=== PATIENT | female | born 1965 | race Caucasian/White ===

== ENCOUNTER → 2017-02-13 | Outpatient (CLI) | payer OTHER ==
[~2017-02-13] MED LIST: PRM625 PO; ZNTT/150
== END | disposition home or self-care (01) ==
LOC: C.PAPS 15:17
PROVIDERS: ATTEND Obstetrics & Gynecology
DX: Z12.4 Encounter for screening for malignant neoplasm of cervix (principal)

== ENCOUNTER → 2017-02-14 | Outpatient (CLI) | payer OTHER ==
[2017-02-14 16:22] LABS: URINE APPEARANCE CLEAR (CLEAR); URINE BILIRUBIN NEG (NEG); URINE COLOR YELLOW; URINE NITRITE NEG (NEG); URINE SPECIFIC GRAVITY 1.013 (1.000-1.030); UROBILINOGEN NEG (NEG)
[2017-02-14 16:25] LABS: MANUAL MICROSCOPIC REQUIRED? NO; REVIEW REQ? NO
== END | disposition home or self-care (01) ==
LOC: C.LABSPEC 14:56
PROVIDERS: ATTEND Obstetrics & Gynecology
DX: R31.9 Hematuria, unspecified (principal)

== ENCOUNTER → 2017-03-16 | Outpatient (CLI) | payer OTHER ==
--- NOTE | 2017-03-17 14:12 | MAMMOGRAPHY REPORT ---
BILATERAL DIGITAL SCREENING MAMMOGRAM TOMOSYNTHESIS WITH CAD: 03/16/2017 CLINICAL HISTORY: Routine screening. Patient has no complaints. TECHNIQUE: Breast tomosynthesis in addition to standard 2D mammography was performed. Current study was also evaluated with a Computer Aided Detection (CAD) system. COMPARISON: Comparison is made to exams dated: 12/02/2015 mammogram, 11/03/2014 mammogram, 11/01/2013 ma mmogram, 10/31/2012 mammogram, 08/16/2011 mammogram, and 07/30/2010 mammogram - [facility] nter. BREAST COMPOSITION: The tissue of both breasts is heterogeneously dense, which may obscure small mas ses. FINDINGS: No suspicious masses, calcifications, or areas of architectural distortion are noted in ei ther breast. There has been no significant interval change compared to prior exams. A few scattered bilateral benign-appearing calcifications are again noted. IMPRESSION: ACR BI-RADS CATEGORY 2: BENIGN There is no mammographic evidence of malignancy. A 1 year screening mammogram is recommended. The pa tient will receive written notification of the results. Approximately 10% of breast cancers are not detected with mammography. A negative mammographic report should not delay biopsy if a clinically suggestive mass is present. Concepción Hooper M.D. /:03/16/2017 14:22:12 [employer]: Holly OSORIO)(M), [facility] letter sent: Normal 1/2 BI-RADS Code: ACR BI-RADS Category 2: Benign
== END | disposition home or self-care (01) ==
LOC: C.MAMM 13:22
PROVIDERS: ATTEND Obstetrics & Gynecology
DX: Z12.31 Encounter for screening mammogram for malignant neoplasm of breast (principal)

== ENCOUNTER 2017-04-05 10:45 | Inpatient (IN) | payer OTHER ==
[2017-04-05] VITALS (7 sets, daily range): BP systolic 102–112; BP diastolic 64–74; PULSE 60–95; TEMP 36.4–36.5; O2SAT 95–97; Ht 160 cm; Wt 59.2 kg
[~2017-04-05] VITALS: Ht 160 cm; Wt 59.2 kg
[~2017-04-05 10:45] MED LIST changes: -ZNTT/150; +ZNTT/150 PO
--- NOTE | 2017-04-05 11:37 | DIAGNOSTIC IMAGING REPORT ---
CHEST ONE VIEW PORTABLE CLINICAL HISTORY: Fever. Sepsis. Atrial fibrillation. COMPARISON STUDY: Chest radiograph November or 2013. FINDINGS: Lung volumes are normal. No pneumothorax or pleural effusion is present. Lungs are clear. Cardiomediastinal silhouette is normal. Pulmonary vascularity is normal. IMPRESSION: No acute cardiopulmonary findings. Electronically signed by: Naldo Gallagher M.D. 04/05/2017 11:35 AM Dictated Date/Time: 04/05/2017 11:35 AM
[2017-04-05 11:48] LABS: BASO % 0.2 %; BASO ABS # 0.01 K/uL (0-0.2); EOS % 0.7 %; HEMATOCRIT 43.3 % (37-47); IG% 0.2 %; LYMPH % 28.7 %; LYMPH ABS # 1.68 K/uL (1.2-3.4); MEAN CELL VOLUME 63.2 fL (80-100); MEAN CORPUSCULAR HEMOGLOBIN 20.1 pg (25-34); MEAN CORPUSCULAR HGB CONC 31.9 g/dl (32-36); MONO % 4.9 %; NEUT % 65.3 %; PLATELET COUNT 218 K/uL (130-400); RED BLOOD COUNT 6.85 M/uL (4.2-5.4); WHITE BLOOD COUNT 5.86 K/uL (4.8-10.8)
[2017-04-05 11:56] LABS: INR 1.1 (0.9-1.1); PARTIAL THROMBOPLASTIN RATIO 0.9; PROTHROMBIN TIME (PATIENT) 11.4 SECONDS (9.0-12.0)
[2017-04-05] MEDS ORDERED: ESTR2TAB PO (12:02)
[2017-04-05 12:05] LABS: ALT/SGPT 18 U/L (12-78); AST/SGOT 11 U/L (15-37); BLOOD UREA NITROGEN 23 mg/dl (7-18); BUN/CREATININE RATIO 31.8 (10-20); CALCIUM 9.3 mg/dl (8.5-10.1); CARBON DIOXIDE 26 mmol/L (21-32); CHLORIDE 107 mmol/L (98-107); CREATININE 0.73 mg/dl (0.60-1.20); GLUCOSE 95 mg/dl (70-99); SODIUM 140 mmol/L (136-145)
[2017-04-05 12:14] LABS: COMPLETE YES; MICROCYTOSIS PRESENT; SPHEROCYTE 1+; TARGET CELLS 1+; TEAR DROP CELLS 1+
[2017-04-05 12:16] LABS: ALKALINE PHOSPHATASE 61 U/L (45-117); CKMB/CK RATIO 2.1 (0-3.0)
[2017-04-05] MEDS ORDERED: DILTIAZEM BOLUS / DRIP IV STA (13:16)
[2017-04-05] MEDS ORDERED: DILTIAZEM HCL INJ 125 MG in DEXTROSE 5% 100ML IV PRN ×2 (13:45→15:45)
[2017-04-05] MEDS ORDERED: DILTIAZEM HCL 5 MG/ML 5 ML VIAL IV SCH (13:45)
[2017-04-05] MEDS ORDERED: ONDANSETRON INJ 2 MG/ML 2 ML VIAL IV PRN (14:15)
[2017-04-05] MEDS ORDERED: ACETAMINOPHEN 325 MG TAB PO PRN (14:15)
[2017-04-05] MEDS ORDERED: DILTIAZEM BOLUS / DRIP IV SCH (14:23)
[2017-04-05] MEDS ORDERED: HEPARIN 25000 UNIT/500 ML D5W ONE (14:38)
[2017-04-05] MEDS ORDERED: HEPARIN SOD 5000 UNIT/0.5 ML CARP ONE (14:38)
--- NOTE | 2017-04-05 14:57 | EMERGENCY ROOM VISIT NOTE ---
History Report prepared by Bobby: Beverly Nicole Under the Supervision of: Dr. Bhargav Altman D.O. First contact with patient: 11:06 Chief Complaint: IRREGULAR HEARTBEAT Stated Complaint: CURRENTLY IN AFIB Nursing Triage Summary: patient was at a sleep study since monday and was told by the research facility that she was mostly in afib throughout the night. they did an EKG when she woke up and she was still in afib. patient states for years she has had occasional palpitation and had a heart monitor that did not show anything. patient states he has had occasional SOB and palpitations for years and states she has not felt any different. History of Present Illness The patient is a 51 year old female who presents to the Emergency Room with complaints of a persistent irregular heartbeat that began last evening. The patient states that she was having a sleep study done in the research facility last night and states that she was found to be in atrial fibrillation throughout the whole evening. She states that this was done at [facility] lab. The patient states that the doctor came in during the morning and did an EKG on the patient and notes that she was still in atrial fibrillation. She states that she was instructed to come to the emergency department for further evaluation and treatment. The patient states that her mother has a history of atrial fibrillation, but denies any personal history of atrial fibrillation. She states that the only medications she takes are hormone replacements. The patient states that she feels short of breath and that her heart is fluttering. She states that she has had these feelings intermittently for the past several months. The patient additionally reports dizziness. She denies taking aspirin daily. Source of History: patient Onset: last evening Position: other (global) Quality: other (irregular heartbeat) Timing: other (persistent) Associated Symptoms: + SOB Note: Associated Symptoms: dizziness, heart fluttering Review of Systems See HPI for pertinent positives & negatives. A total of 10 systems reviewed and were otherwise negative. Past Medical & Surgical Medical Problems: (1) Gastroparesis (2) GERD (gastroesophageal reflux disease) (3) Palpitations Surgical Problems: (1) H/O: hysterectomy (2) History of hysterectomy (3) History of tonsillectomy (4) Status post laparotomy Family History Atrial fibrillation Cancer Hypertension Kidney disease Kidney stones Social History Smoking Status: Never Smoker Smokeless Tobacco Use: No Alcohol Use: none Marital Status: single Housing Status: lives with family Occupation Status: unemployed Current/Historical Medications Scheduled Estradiol (Estradiol), 1 TAB PO DAILY Ranitidine (Zantac), 1 TAB PO BID Allergies Coded Allergies: Codeine (Verified Allergy, Unknown, 04/05/17) Physical Exam Vital Signs Date Time Temp Pulse Resp B/P (MAP) Pulse Ox O2 Delivery O2 Flow Rate FiO2 04/05/17 14:51 98 20 109/68 98 04/05/17 14:50 90 20 98/71 96 04/05/17 14:11 78 20 104/70 99 Room Air 04/05/17 14:07 80 20 111/77 98 Room Air 04/05/17 14:01 72 18 93/71 98 Room Air 04/05/17 13:57 80 22 100/76 97 Room Air 04/05/17 13:52 82 20 89/65 97 Room Air 04/05/17 13:38 146 22 117/84 96 04/05/17 13:18 126 04/05/17 13:01 126 18 139/88 97 Room Air 04/05/17 12:00 94 20 119/87 96 Room Air 04/05/17 11:43 116 20 106/87 96 Room Air 04/05/17 11:15 Room Air 04/05/17 11:13 102 04/05/17 10:58 99 Room Air 04/05/17 10:53 36.8 98 18 104/68 100 Room Air Physical Exam CONSTITUTIONAL/VITAL SIGNS: Reviewed / noted above. GENERAL: Non-toxic in appearance. INTEGUMENTARY: Warm, dry, and Dooms. HEAD: Normocephalic. EYES: without scleral icterus or trauma. ENT/OROPHARYNX: clear and moist. LYMPHADENOPATHY/NECK: Is supple without lymphadenopathy or meningismus. RESPIRATORY: Lungs clear and equal. CARDIOVASCULAR: Heart has an irregular rate and irregular rhythm. GI/ABDOMEN: Soft and nontender. No organomegaly or pulsatile mass. No rebound or guarding. Normal bowel sounds. EXTREMITIES: Warm and well perfused. BACK: No CVA tenderness. NEUROLOGICAL: Intact without focal deficits. PSYCHIATRIC: normal affect. MUSCULOSKELETAL: Normally developed with good muscle tone. Medical Decision & Procedures ER Provider Diagnostic Interpretation: X ray results and stated below per my interpretation and radiology interpretation. CHEST ONE VIEW PORTABLE CLINICAL HISTORY: Fever. Sepsis. Atrial fibrillation. COMPARISON STUDY: Chest radiograph November or 2013. FINDINGS: Lung volumes are normal. No pneumothorax or pleural effusion is present. Lungs are clear. Cardiomediastinal silhouette is normal. Pulmonary vascularity is normal. IMPRESSION: No acute cardiopulmonary findings. Electronically signed by: Naldo Gallagher M.D. 04/05/2017 11:35 AM Dictated Date/Time: 04/05/2017 11:35 AM Laboratory Results 04/05/17 11:35 Red Blood Count 6.85, Mean Corpuscular Volume 63.2, Mean Corpuscular Hemoglobin 20.1, Mean Corpuscular Hemoglobin Concent 31.9, Neutrophils (%) (Auto) 65.3, Lymphocytes (%) (Auto) 28.7, Monocytes (%) (Auto) 4.9, Eosinophils (%) (Auto) 0.7, Basophils (%) (Auto) 0.2, Neutrophils # (Auto) 3.83, Lymphocytes # (Auto) 1.68, Monocytes # (Auto) 0.29, Eosinophils # (Auto) 0.04, Basophils # (Auto) 0.01 04/05/17 11:35 Test 04/05/17 11:35 White Blood Count 5.86 K/uL (4.8-10.8) Red Blood Count 6.85 M/uL (4.2-5.4) Hemoglobin 13.8 g/dL (12.0-16.0) Hematocrit 43.3 % (37-47) Mean Corpuscular Volume 63.2 fL (80-100) Mean Corpuscular Hemoglobin 20.1 pg (25-34) Mean Corpuscular Hemoglobin Concent 31.9 g/dl (32-36) Platelet Count 218 K/uL (130-400) Neutrophils (%) (Auto) 65.3 % Lymphocytes (%) (Auto) 28.7 % Monocytes (%) (Auto) 4.9 % Eosinophils (%) (Auto) 0.7 % Basophils (%) (Auto) 0.2 % Neutrophils # (Auto) 3.83 K/uL (1.4-6.5) Lymphocytes # (Auto) 1.68 K/uL (1.2-3.4) Monocytes # (Auto) 0.29 K/uL (0.11-0.59) Eosinophils # (Auto) 0.04 K/uL (0-0.5) Basophils # (Auto) 0.01 K/uL (0-0.2) RDW Standard Deviation 35.4 fL (36.4-46.3) RDW Coefficient of Variation 16.0 % (11.5-14.5) Immature Granulocyte % (Auto) 0.2 % Immature Granulocyte # (Auto) 0.01 K/uL (0.00-0.02) Microcytosis PRESENT Spherocytes 1+ Target Cells 1+ Tear Drop Cells 1+ Prothrombin Time 11.4 SECONDS (9.0-12.0) Prothromb Time International Ratio 1.1 (0.9-1.1) Activated Partial Thromboplast Time 23.1 SECONDS (21.0-31.0) Partial Thromboplastin Ratio 0.9 Anion Gap 7.0 mmol/L (3-11) Est Creatinine Clear Calc Drug Dose 76.2 ml/min Estimated GFR () 111.3 Estimated GFR (Non- 96.0 BUN/Creatinine Ratio 31.8 (10-20) Calcium Level 9.3 mg/dl (8.5-10.1) Magnesium Level 2.3 mg/dl (1.8-2.4) Total Bilirubin 0.8 mg/dl (0.2-1) Direct Bilirubin 0.2 mg/dl (0-0.2) Aspartate Amino Transf (AST/SGOT) 11 U/L (15-37) Alanine Aminotransferase (ALT/SGPT) 18 U/L (12-78) Alkaline Phosphatase 61 U/L (45-117) Total Creatine Kinase 34 U/L (26-192) Creatine Kinase MB 0.7 ng/ml (0.5-3.6) Creatine Kinase MB Ratio 2.1 (0-3.0) Troponin I < 0.015 ng/ml (0-0.045) Total Protein 8.2 gm/dl (6.4-8.2) Albumin 4.2 gm/dl (3.4-5.0) Lipase 145 U/L (73-393) Thyroid Stimulating Hormone (TSH) 1.460 uIu/ml (0.300-4.500) Laboratory results as stated above per my review. Medications Administered Medications (Trade) Dose Ordered Sig/Linnea Route Start Time Stop Time Status Last Admin Dose Admin Diltiazem HCl (Cardizem Bolus / Drip) 1 ea NOW STAT IV 11/1/17 13:16 04/05/17 13:19 DC 04/05/17 13:16 1 EA Diltiazem HCl (Cardizem Inj) 15 mg TODAY@1345 IV 04/05/17 13:45 04/05/17 13:46 DC 04/05/17 13:40 15 MG Diltiazem HCl 125 mg/Dextrose 125 ml @ 0 mls/hr Q0M PRN IV 04/05/17 13:45 04/05/17 23:59 04/05/17 13:42 10 MLS/HR Heparin Sodium/ Dextrose 1 ea Q30M N/A 04/05/17 14:26 05/05/17 14:25 04/05/17 14:26 1 EA Heparin Sodium (Porcine) (Heparin Sq 5000 Unit/0.5ml) 5,000 unit STK-MED ONCE .ROUTE 04/05/17 14:38 04/05/17 14:39 DC 04/05/17 14:47 4,000 UNIT Heparin Sodium/ Dextrose (Heparin 25,000 Unit/500ml D5W) 25,000 unit STK-MED ONCE .ROUTE 04/05/17 14:38 04/05/17 14:39 DC 04/05/17 14:38 25,000 UNIT ECG Indication: other (irregular heartbeat) Rate (beats per minute): 109 Rhythm: atrial fibrillation Findings: no acute ischemic change, no ectopy ED Course 1107: Previous medical records were reviewed. The patient was evaluated in room C7. A complete history and physical examination was performed. 1130: I discussed the patients case with Dr. Alanis, Cardiology. He recommends an echocardiogram for the patient and states that depending what it shows, he recommends outpatient follow up. 1313: I reevaluated the patient and she is resting comfortably. I discussed the exam findings with her and I discussed the treatment plan. She verbalized complete understanding and agreement. She will be evaluated for further treatment. 1316: Ordered Diltiazem HCl 1 ea IV. 1330: I discussed the patients case with Dr. [facility]. She is going to evaluate the patient for further treatment. 1345: Ordered Diltiazem HCl 125 mg/Dextrose 125 ml @ 0 mls/hr Protocol IV, Diltiazem HCl 15 mg IV. 1347: Ordered Heparin Sodium/Dextrose 1 ea NA. Medical Decision Differentials considered include acute myocardial infarction, acute coronary syndrome, myocarditis, pericarditis, pericardial effusions /tamponade, esophageal perforation, thoracic aortic dissection, pulmonary embolism, pneumonia, pneumothorax, pancreatitis, shingles, acute cholecystitis, and perforated abdominal viscus. This is a 51-year-old female who presents to the ED with a chief complaint of A. fib. The patient was at a sleep study at the [place] and she was being monitored and found to be in nature fibrillation. She was sent here for evaluation. The patient does report having palpitations and similar symptoms over the past years. She reports that she has had some exercise intolerance at times. She is very active. The patient denies any recent illness, fevers or chills. No chest pains or shortness of breath. Her exam revealed A. fib. Exam was otherwise unremarkable. During the patient's ED stay, she developed A. fib with RVR. She was then started on IV Cardizem and Cardizem drip. Blood work including CBC, chemistry panel and cardiac enzymes were normal. TSH was normal. The patient will be seen by the hospitalist for further inpatient evaluation and care. Medication Reconcilliation Current Medication List: was personally reviewed by me Consults Time Called: 1129 Consulting Physician: Dr. Alanis, Cardiology Returned Call: 1130 I discussed the patients case with Dr. Alanis, Cardiology. He recommends an echocardiogram for the patient and states that depending what it shows, he recommends outpatient follow up. Additional Consults: Time Called: 1325 Consulted Physician: Elli Scanlon Returned Call: 1330 Additional Comments: I discussed the patients case with Elli Scanlon. She is going to evaluate the patient for further treatment. Impression Primary Impression: Atrial fibrillation with RVR Critical Care I have personally spent 30 minutes of critical care time in the direct management of this patient. This includes bedside care, interpretation of diagnostic studies, and testing, discussion with consultants, patient, and family members, and other required patient management activities. This 30 minutes is in excess of all separately billable procedures. Scribe Attestation The scribe's documentation has been prepared under my direction and personally reviewed by me in its entirety. I confirm that the note above accurately reflects all work, treatment, procedures, and medical decision making performed by me. Departure Information Dispostion Being Evaluated By Hospitalist Referrals No Doctor, Assigned (PCP)
--- NOTE | 2017-04-05 16:01 | History and Physical ---
History & Physical Date & Time of Service: Apr 05, 2017 at 14:42 Chief Complaint: Atrial Fibrillation Primary Care Physician: Ty Bender M.D. History of Present Illness 51 year old female who presents to the ED after being found to be in atrial fibrillation during an elective research sleep study at [facility]. During the study, patient was noted to be in atrial fibrillation. Patient was asymptomatic. Patient reports a long standing history of palpitations. Per review of prior records, about 10 years ago patient was trailed on several medications for palpitations including Toprol, metoprolol, verapamil, and atenolol. These either did not control her symptoms or gave her headache. She was then finally placed on Cardizem however is no longer taking it. She is unsure when she stopped this medicine or why. She does remember her palpitations being much more severe several years ago however they have seem to have gotten better over time. She reports they would happen frequently and sometimes last all day and now they happen infrequently and resolve on their own quickly. She denies chest pain, shortness of breath, lightheadedness, dizziness, diaphoresis, or syncopal events. No abdominal pain, nausea, vomiting , or diarrhea. She denies fever and chills. No urinary symptoms. In the ED, patient was found to be in a rate controlled atrial fibrillation. Labs are unremarkable. She was to have an echo completed and likely discharged home however patient develop a. fib with RVR with rates in the 160s. She was given Cardizem 15mg IV bolus followed by a drip with improvement in her rates. Past Medical/Surgical History Medical Problems: (1) Gastroparesis Status: Chronic (2) GERD (gastroesophageal reflux disease) Status: Chronic (3) Palpitations Status: Chronic Surgical Problems: (1) H/O: hysterectomy Status: Resolved (2) History of hysterectomy Status: Chronic (3) History of tonsillectomy Status: Chronic (4) Status post laparotomy Status: Resolved Family History FH: atrial fibrillation MOTHER FH: prostate cancer FATHER Social History Smoking Status: Never Smoker Alcohol Use: none Multi-Drug Resistant Organisms History of MDRO: No Allergies Coded Allergies: Codeine (Verified Allergy, Unknown, 04/05/17) Home Medications Scheduled Estradiol (Estradiol), 1 TAB PO DAILY Ranitidine (Zantac), 1 TAB PO BID Review of Systems ROS per HPI, all other systems reviewed and negative Physical Exam Vital Signs Date Time Temp Pulse Resp B/P (MAP) Pulse Ox O2 Delivery O2 Flow Rate FiO2 04/05/17 14:11 78 20 104/70 99 Room Air 04/05/17 14:07 80 20 111/77 98 Room Air 04/05/17 14:01 72 18 93/71 98 Room Air 04/05/17 13:57 80 22 100/76 97 Room Air 04/05/17 13:52 82 20 89/65 97 Room Air 04/05/17 13:38 146 22 117/84 96 04/05/17 13:18 126 04/05/17 13:01 126 18 139/88 97 Room Air 04/05/17 12:00 94 20 119/87 96 Room Air 04/05/17 11:43 116 20 106/87 96 Room Air 04/05/17 11:15 Room Air 04/05/17 11:13 102 04/05/17 10:58 99 Room Air 04/05/17 10:53 36.8 98 18 104/68 100 Room Air General Appearance: WD/WN, no apparent distress Head: normocephalic, atraumatic Eyes: normal inspection, EOMI, sclerae normal ENT: hearing grossly normal, + pertinent finding (mucous membranes jeff) Neck: supple, no JVD, trachea midline Respiratory/Chest: lungs clear, normal breath sounds, no respiratory distress Cardiovascular: no edema, normal peripheral pulses, + irregularly irregular ( rate controlled) Abdomen/GI: normal bowel sounds, non tender, soft, no organomegaly Extremities/Musculoskelatal: normal inspection, no calf tenderness, normal capillary refill Neurologic/Psych: no motor/sensory deficits, alert, normal mood/affect, oriented x 3 Skin: normal color, warm/dry Diagnostics Laboratory Results Results Past 24 Hours Test 04/05/17 11:35 Range/Units White Blood Count 5.86 4.8-10.8 K/uL Red Blood Count 6.85 4.2-5.4 M/uL Hemoglobin 13.8 12.0-16.0 g/dL Hematocrit 43.3 37-47 % Mean Corpuscular Volume 63.2 80-100 fL Mean Corpuscular Hemoglobin 20.1 25-34 pg Mean Corpuscular Hemoglobin Concent 31.9 32-36 g/dl Platelet Count 218 130-400 K/uL Neutrophils (%) (Auto) 65.3 % Lymphocytes (%) (Auto) 28.7 % Monocytes (%) (Auto) 4.9 % Eosinophils (%) (Auto) 0.7 % Basophils (%) (Auto) 0.2 % Neutrophils # (Auto) 3.83 1.4-6.5 K/uL Lymphocytes # (Auto) 1.68 1.2-3.4 K/uL Monocytes # (Auto) 0.29 0.11-0.59 K/uL Eosinophils # (Auto) 0.04 0-0.5 K/uL Basophils # (Auto) 0.01 0-0.2 K/uL RDW Standard Deviation 35.4 36.4-46.3 fL RDW Coefficient of Variation 16.0 11.5-14.5 % Immature Granulocyte % (Auto) 0.2 % Immature Granulocyte # (Auto) 0.01 0.00-0.02 K/uL Microcytosis PRESENT Spherocytes 1+ Target Cells 1+ Tear Drop Cells 1+ Prothrombin Time 11.4 9.0-12.0 SECONDS Prothromb Time International Ratio 1.1 0.9-1.1 Activated Partial Thromboplast Time 23.1 21.0-31.0 SECONDS Partial Thromboplastin Ratio 0.9 Sodium Level 140 136-145 mmol/L Potassium Level 4.0 3.5-5.1 mmol/L Chloride Level 107 98-107 mmol/L Carbon Dioxide Level 26 21-32 mmol/L Anion Gap 7.0 3-11 mmol/L Blood Urea Nitrogen 23 7-18 mg/dl Creatinine 0.73 0.60-1.20 mg/dl Est Creatinine Clear Calc Drug Dose 76.2 ml/min Estimated GFR () 111.3 Estimated GFR (Non- 96.0 BUN/Creatinine Ratio 31.8 10-20 Random Glucose 95 70-99 mg/dl Calcium Level 9.3 8.5-10.1 mg/dl Total Bilirubin 0.8 0.2-1 mg/dl Direct Bilirubin 0.2 0-0.2 mg/dl Aspartate Amino Transf (AST/SGOT) 11 15-37 U/L Alanine Aminotransferase (ALT/SGPT) 18 12-78 U/L Alkaline Phosphatase 61 45-117 U/L Total Creatine Kinase 34 26-192 U/L Creatine Kinase MB 0.7 0.5-3.6 ng/ml Creatine Kinase MB Ratio 2.1 0-3.0 Troponin I < 0.015 0-0.045 ng/ml Total Protein 8.2 6.4-8.2 gm/dl Albumin 4.2 3.4-5.0 gm/dl Lipase 145 73-393 U/L Thyroid Stimulating Hormone (TSH) 1.460 0.300-4.500 uIu/ml Diagnostic Radiology CXR IMPRESSION: No acute cardiopulmonary findings. Impression Assessment and Plan NEW ONSET ATRIAL FIBRILLATION WITH RVR - admit to tele - patient presenting after having an elective sleep study done at [facility] where she was found to be in atrial fibrillation on the monitor, patient was asymptomatic ; in the ED, patient was initially in rate controlled atrial fibrillation however then developed a. fib with RVR with rates in the 160s, she was given Cardizem 15mg IV bolus and drip with improvement in rates - has a long standing history of palpitations. Per review of prior records, about 10 years ago patient was trailed on several medications for palpitations including Toprol, metoprolol, verapamil, and atenolol. These either did not control her symptoms or gave her headache. She was then finally placed on Cardizem however is no longer taking it. She is unsure when she stopped this medicine or why. - will continue Cardizem drip with transition to metoprolol 12.5mg PO BID - will start heparin drip; further anticoagulation recommendations as per cardiology - initial troponin negative, continue to cycle cardiac enzymes - resting echo - electrolytes and TSH WNL, no signs of infection; unclear precipitating cause - cardio consult, input appreciated DVT PROPHYLAXIS - on heparin drip DISPO - The patient will be placed as observation status for now until further work up is complete. ATTENDING ADDENDUM : pt seen and examined, in agreement with above H&P by Harper BAILEY 51 yo F with no prior cardiac hx , presented to ED with Rapid Afib RVR pt mentions of having intermittent palpitation , dizzy spell , feeling of passing out in last few weeks had not seek any medical attention at present denies of any chest pain or SOB mentions of palpitation off and on P/E: Gen ; no apparent distress HEENT: sclera non icteric , PERRLA/EOMI HT : regular S1/S2 Lungs: CTA abdomen ; soft, non tender ext: no lower ext edema Neuro: no focal deficit A/P: RAPID AFIB RVR/NEW DIAGNOSIS : admitted to tele on IV Cardizem gtt , IV heparin wt based protocol case D/w Cardiology started on PO Lopressor ECHO , serial cardiac markers Cardiology eval in AM FULL CODE Ena Ross MD Level of Care Telemetry Resuscitation Status FULL RESUSCITATION VTE Prophylaxis VTE Risk Assessment Done? Y/N: Yes Risk Level: Moderate Given or contraindicated: Other Anticoagulation (IV heparin wt based protocol ) Additional Copies To Ty Bender M.D.
[2017-04-05] MEDS: METOPROLOL TARTRATE 25 MG TAB PO SCH ×2 (17:02→21:56)
[2017-04-05 20:37] LABS: PARTIAL THROMBOPLASTIN RATIO 1.4
[2017-04-05] MEDS ORDERED: HEPARIN IV BOLUS 4,000 UNIT in SYRINGE 0 ML IV ONE (21:15)
[2017-04-05] MEDS: HEPARIN 25000 UNIT/ D5W 500 ML (PHARMACY PREPARED) IV PRN ×2 (21:53)
[2017-04-05] MEDS: RANITIDINE HCL 150 MG TAB PO SCH (21:55)
[2017-04-06] VITALS (10 sets, daily range): BP systolic 95–123; BP diastolic 62–85; PULSE 65–107; TEMP 36.2–36.6; O2SAT 96–100
[2017-04-06 02:32] LABS: PARTIAL THROMBOPLASTIN RATIO 2.9
[2017-04-06] MEDS ORDERED: NURSING VERBAL MED ORDER ONE ×3 (07:00→22:15)
[2017-04-06] MEDS: RANITIDINE HCL 150 MG TAB PO SCH ×2 (07:33→20:49)
--- NOTE | 2017-04-06 08:11 | ECHOCARDIOGRAM REPORT ---
*NOTICE TO RECEIVING [employer]ENCY This information is strictly Confidential and protected under [place] law. [place] law prohibits you from making any further disclosure of this information unless further disclosure is expressly permitted by the written consent of the person to whom it pertains or is authorized by law. A general authorization for the release of medical or other information is not sufficient for this purpose. Hospital accepts no responsibility if the information is made available to any other person, INCLUDING THE PATIENT. Interpretation Summary * Name: GERALDINE ALVARES Study Date: 04/05/2017 04:29 PM BP: 109/68 mmHg * Patient Location: [facility] HR: 98 * : 1965 (M/d/yyyy) Gender: Female Height: 63 in * Age: 51 yrs Ethnicity: CA Weight: 133 lb * Ordering Physician: POLINA BROWNING. DO * Referring Physician: Kaelyn Sims * Performed By: Noemi Richards RDCS * * Reason For Study: A-FIB * BSA: 1.6 m2 * The study was technically adequate. * Compared to prior study, changes are noted. * -- Conclusions -- * The rhythm is atrial fibrillation. * Ejection Fraction = 55-60%. * The left atrium is mildly dilated. * No significant valvular pathology. Procedure Details * A complete two-dimensional transthoracic echocardiogram was performed (2D, M-mode, Doppler and color flow Doppler). Left Ventricle * The rhythm is atrial fibrillation. * The left ventricle is normal in size. * There is no thrombus. * There is normal left ventricular wall thickness. * Ejection Fraction = 55-60%. * Left ventricular systolic function is normal. * The left ventricular wall motion is normal. Right Ventricle * The right ventricle is normal size. * The right ventricular systolic function is normal as assessed by tricuspid annular plane systolic excursion (TAPSE) (normal >1.5 cm). Atria * The left atrium is mildly dilated. * The left atrial size is normal. * Right atrial size is normal. * There is no evidence of atrial septal defect, but resolution does not allow assessment for a patent foramen ovale. Mitral Valve * The mitral valve is normal. * There is no mitral valve stenosis. * Significant mitral regurgitation is absent. Tricuspid Valve * The tricuspid valve is normal. * There is no tricuspid stenosis. * Significant tricuspid regurgitation is absent. Aortic Valve * The aortic valve is trileaflet. * Aortic stenosis is absent. * There is no significant aortic regurgitation. Pulmonic Valve * The pulmonary valve is not well seen, but the Doppler examination is normal without significant regurgitation or stenosis. Great Vessels * The aortic root is normal size. Pericardium/Pleural * There is no pericardial effusion. Great Vessels * Normal inferior vena cava diameter and respiratory variation suggests normal central venous pressure. MMode 2D Measurements and Calculations IVSd 1.3 cm IVSs 1.4 cm LVIDd 4.5 cm LVIDs 3.1 cm LVPWd 1.1 cm LVPWs 1.5 cm IVS/LVPW 1.2 FS 31.3 % EDV(Teich) 92.1 ml ESV(Teich) 37.5 ml EF(Teich) 59.3 % EDV(cubed) 90.7 ml ESV(cubed) 29.4 ml EF(cubed) 67.6 % % IVS thick 8.5 % % LVPW thick 35.8 % LV mass(C)d 191.3 grams LV mass(C)dI 117.7 grams/m\S\2 LV mass(C)s 149.4 grams LV mass(C)sI 91.9 grams/m\S\2 SV(Teich) 54.7 ml SI(Teich) 33.6 ml/m\S\2 SV(cubed) 61.4 ml SI(cubed) 37.7 ml/m\S\2 ACS 1.6 cm LA dimension 4.2 cm asc Aorta Diam 2.7 cm LVOT diam 2.0 cm LVOT area 3.0 cm\S\2 LVAd ap4 31.2 cm\S\2 LVLd ap4 7.8 cm EDV(MOD-sp4) 100.5 ml EDV(sp4-el) 105.3 ml LVAs ap4 18.2 cm\S\2 LVLs ap4 6.9 cm ESV(MOD-sp4) 40.9 ml ESV(sp4-el) 40.8 ml EF(MOD-sp4) 59.3 % EF(sp4-el) 61.3 % LVAd ap2 28.7 cm\S\2 LVLd ap2 7.8 cm EDV(MOD-sp2) 87.0 ml EDV(sp2-el) 90.2 ml LVAs ap2 16.4 cm\S\2 LVLs ap2 6.5 cm ESV(MOD-sp2) 35.4 ml ESV(sp2-el) 35.2 ml EF(MOD-sp2) 59.3 % EF(sp2-el) 61.0 % LVLd %diff -1.05 % EDV(MOD-bp) 93.7 ml LVLs %diff -6.62 % ESV(MOD-bp) 37.6 ml EF(MOD-bp) 59.8 % SV(MOD-sp4) 59.6 ml SI(MOD-sp4) 36.7 ml/m\S\2 SV(MOD-sp2) 51.6 ml SI(MOD-sp2) 31.7 ml/m\S\2 SV(MOD-bp) 56.0 ml SI(MOD-bp) 34.5 ml/m\S\2 SV(sp4-el) 64.5 ml SI(sp4-el) 39.7 ml/m\S\2 SV(sp2-el) 55.1 ml SI(sp2-el) 33.9 ml/m\S\2 Doppler Measurements and Calculations MV E max all 78.9 cm/sec MV dec time 0.19 sec Ao V2 max 95.1 cm/sec Ao max PG 3.6 mmHg Ao max PG (full) 1.8 mmHg VIPIN(V,A) 2.1 cm\S\2 VIPIN(V,D) 2.1 cm\S\2 LV V1 max PG 1.8 mmHg LV V1 max 66.8 cm/sec PA V2 max 70.2 cm/sec PA max PG 2.0 mmHg TR max all 195.8 cm/sec
[2017-04-06 08:55] LABS: MEAN CORPUSCULAR HGB CONC 32.7 g/dl (32-36)
[2017-04-06] MEDS: METOPROLOL TARTRATE 25 MG TAB PO SCH (09:00)
[2017-04-06] MEDS ORDERED: ESTRADIOL 1 MG TAB PO SCH ×2 (09:00→21:00)
[2017-04-06 09:04] LABS: PARTIAL THROMBOPLASTIN RATIO 1.7
[2017-04-06 09:13] LABS: HEMATOCRIT 38.2 % (37-47); MEAN CELL VOLUME 63.2 fL (80-100); MEAN CORPUSCULAR HEMOGLOBIN 20.7 pg (25-34); RED BLOOD COUNT 6.04 M/uL (4.2-5.4); WHITE BLOOD COUNT 4.73 K/uL (4.8-10.8)
[2017-04-06 09:23] LABS: BUN/CREATININE RATIO 22.5 (10-20); CALCIUM 8.6 mg/dl (8.5-10.1); CREATININE 0.78 mg/dl (0.60-1.20); POTASSIUM 3.4 mmol/L (3.5-5.1)
[2017-04-06 10:07] LABS: PLATELET COUNT 143 K/uL (130-400); PLT ESTIMATE NORMAL
[2017-04-06] MEDS ORDERED: HEPARIN IV BOLUS 2,000 UNIT in SYRINGE 0 ML IV ONE (10:30)
[2017-04-06] MEDS: HEPARIN 25000 UNIT/ D5W 500 ML (PHARMACY PREPARED) IV PRN ×2 (10:34)
[2017-04-06] MEDS ORDERED: POTASSIUM CHLORIDE 20 MEQ TABCR PO STA (11:27)
[2017-04-06] MEDS ORDERED: METOPROLOL SUCC 25MG EXT REL TAB PO ONE (11:27)
[2017-04-06] MEDS ORDERED: APIXABAN 2.5 MG TAB PO ONE (11:29)
--- NOTE | 2017-04-06 11:40 | CARDIOLOGY CONSULTATION ---
DATE OF CONSULTATION: 04/06/2017 REASON FOR CONSULTATION: Atrial fibrillation. REFERRING PHYSICIAN: Dr. Ena Ross. CHIEF COMPLAINT ON ADMISSION: Atrial fibrillation. HISTORY OF PRESENT ILLNESS: Ms. Walker is a 51-year-old female who was found to be in atrial fibrillation during a recent research sleep study at [facility]. Initially, the patient reported to be asymptomatic; however, currently reports intermittent palpitations as well as dyspnea on exertion. Denies any chest discomfort. She reports a longstanding history of palpitations dating back to 2005. At that time, she was evaluated by cardiology, where exercise stress testing was completed and found to be negative for inducible ischemia. She also had an ECG performed at that time. The patient was previously treated with atenolol; however, could not tolerate this medication due to headache. The patient remained in atrial fibrillation overnight. Her heart rate was elevated initially and metoprolol 12.5 mg twice daily was added. Her a.m. dose was held today due to borderline hypotension. Her heart rate has been controlled on telemetry overnight. Denies history of hypertension, diabetes, congestive heart failure, cerebrovascular accident, or peripheral vascular disease. No history of GI or blood loss. Also, reports a history of lightheadedness and near syncope, which was somewhat sporadic over the past 18 months. The symptoms typically occur at rest. Denies overt syncope. No history of focal weakness, slurred speech, gait instability, or falls. Notes family history of atrial fibrillation with her mother, who is currently taking Coumadin. Also it should be noted that the patient took a short course of the phentermine in 2016 for weight loss. REVIEW OF SYSTEMS: The pertinent positive noted above, a comprehensive 10-system review is otherwise negative. PAST MEDICAL HISTORY: 1. Gastroparesis. 2. GERD. 3. Palpitations. PAST SURGICAL HISTORY: 1. Hysterectomy. 2. Tonsillectomy. 3. Laparotomy. FAMILY HISTORY: Atrial fibrillation with mother. No premature CAD or sudden cardiac . SOCIAL HISTORY: Lifelong nonsmoker. ALLERGIES: LISTED TO CODEINE. HOME MEDICATIONS: 1. Estradiol 1 tablet daily. 2. Zantac 1 tab twice daily. Resting 2D transthoracic echo demonstrates normal LV function, normal wall motion with mild left atrial enlargement. No significant valvular disease. LABORATORY DATA: Troponins are undetectable. Sodium 142, potassium 3.4, chloride 101, CO2 is 23, BUN is 18, creatinine 0.78, and glucose 126, which was random, nonfasting. White blood cell count 4.73, hemoglobin is 12.5, and platelet count 143. APTT is 43.6 this morning. Hepatitis screen is negative. PHYSICAL EXAMINATION: VITAL SIGNS: Temperature is 36.4 degrees centigrade, pulse is 72 beats per minute and irregular, respiratory rate is 15 breaths per minute, blood pressure 120/74 and SaO2 is 96% on room air. GENERAL: NAD, awake, alert and oriented x3. HEENT: Mucous membranes moist. No scleral icterus. Conjunctivae pink. NECK: Supple with no JVD, no HJR, and no carotid bruit. HEART: Irregular with a normal S1 and S2. No murmur, rub, or gallop. LUNGS: Clear without rales, rhonchi or wheeze. ABDOMEN: Soft and nontender. No rebound or guarding. Normal bowel sounds. EXTREMITIES: Warm and dry without clubbing, cyanosis, or edema. NEUROLOGIC: Demonstrates no focal deficit. FINAL IMPRESSION: 1. Paroxysmal atrial fibrillation with currently controlled ventricular response on low dose beta-ileana therapy. The patient's CHADS2 score is 0. Her CHADS-VASc score equals 1. 2. Mild left atrial enlargement. 3. History of past phentermine use for weight loss. 4. Family history of atrial fibrillation. 5. Chronic estrogen replacement. PLAN AND RECOMMENDATIONS: I had a long discussion regarding her atrial fibrillation and mild symptoms. We discussed the potential for direct current cardioversion in the future. The patient understands this would require 4 weeks of anticoagulation followed by an additional 4 weeks of anticoagulation post-cardioversion. We discussed the risks versus benefit of DOAC medications versus Coumadin. The patient elects to proceed with Eliquis 5 mg twice daily. Heparin will be discontinued. I will transition metoprolol to Toprol-XL 25 mg daily. The patient informed that she may not use phentermine in the future due to potential cardiovascular effects. I have also recommended that hormone replacement therapy will be discontinued if possible. This will be performed via her PCP's office and/or with the aide of the hospitalist during this hospitalization. I will see her back for routine cardiology followup in 2 weeks to assess her rhythm, determine the need for possible cardioversion +/- 14-day Zio monitor during that visit. Thank you for allowing me to take part in the care of your patient. AUGUSTINE
[2017-04-06] MEDS ORDERED: [UNRECOGNIZED DRUG - REMARK] ONE (12:00)
--- NOTE | 2017-04-06 15:58 | Progress Note ---
Medicine Progress Note Date & Time of Visit: Apr 06, 2017 at 15:52. Subjective seen resting in bed, comfortable states she feels fine overall denies chest pain, palpitations, dyspnea, dizziness ambulating well with no problems denies any bleeding states she feels comfortable being discharged today no other symptoms Objective Last 8 Hrs Date Time Temp Pulse Resp B/P (MAP) Pulse Ox O2 Delivery O2 Flow Rate FiO2 04/06/17 15:32 36.3 97 16 114/78 (90) 98 Room Air 04/06/17 12:00 Room Air 04/06/17 11:30 36.6 88 18 114/75 (88) 100 04/06/17 10:50 101 18 120/74 (89) 96 04/06/17 08:00 Room Air Physical Exam: General- oriented x 3, not in distress, speaks in sentences with no effort Head- atraumatic Eyes- PERRL, EOMI, anicteric ENT- oropharynx clear Neck- supple, no JVD, no adenopathy, no thyromegaly Lungs- clear to auscultation b/l Heart- irregularly irregular rhythm; no murmur, normal rate Abdomen- normal bowel sounds, soft, nontender Extremities- no pretibial edema, no calf tenderness; peripheral pulses intact Neuro- alert, oriented x 3;no gross focal deficits Skin- warm & dry Laboratory Results: Last 24 Hours Test 04/05/17 17:30 04/05/17 17:43 04/05/17 20:16 04/05/17 23:24 Creatine Kinase MB Ratio Creatine Kinase MB 0.6 ng/ml 0.7 ng/ml Troponin I < 0.015 ng/ml < 0.015 ng/ml Activated Partial Thromboplast Time 36.4 SECONDS Partial Thromboplastin Ratio 1.4 Test 04/06/17 02:04 04/06/17 08:36 04/06/17 15:36 Activated Partial Thromboplast Time 76.2 SECONDS 43.6 SECONDS Partial Thromboplastin Ratio 2.9 1.7 White Blood Count 4.73 K/uL Red Blood Count 6.04 M/uL Hemoglobin 12.5 g/dL Hematocrit 38.2 % Mean Corpuscular Volume 63.2 fL Mean Corpuscular Hemoglobin 20.7 pg Mean Corpuscular Hemoglobin Concent 32.7 g/dl RDW Standard Deviation 35.8 fL RDW Coefficient of Variation 15.8 % Platelet Count 143 K/uL Platelet Estimate NORMAL Sodium Level 142 mmol/L Potassium Level 3.4 mmol/L Chloride Level 111 mmol/L Carbon Dioxide Level 23 mmol/L Anion Gap 8.0 mmol/L Blood Urea Nitrogen 18 mg/dl Creatinine 0.78 mg/dl Est Creatinine Clear Calc Drug Dose 71.4 ml/min Estimated GFR () 102.7 Estimated GFR (Non- 88.6 BUN/Creatinine Ratio 22.5 Random Glucose 126 mg/dl Calcium Level 8.6 mg/dl Assessment & Plan NEW ONSET ATRIAL FIBRILLATION WITH RVR - admit to tele - patient presenting after having an elective sleep study done at [facility] where she was found to be in atrial fibrillation on the monitor, patient was asymptomatic ; in the ED, patient was initially in rate controlled atrial fibrillation however then developed a. fib with RVR with rates in the 160s, she was given Cardizem 15mg IV bolus and drip with improvement in rates - cardiac markers negative echo: * -- Conclusions -- * The rhythm is atrial fibrillation. * Ejection Fraction = 55-60%. * The left atrium is mildly dilated. * No significant valvular pathology. Potassium 3.4 - required Cardizem drip, then transitioned to Metoprolol PO placed on heparin drip - patient remained in Atrial Fibrillation but heart rate was controlled to <100 Cardiology consulted, Dr. Alanis, he recommends: Metoprolol XL 25mg po daily Apixaban 5mg po BID K supplementation possible discontinuation of estrogen therapy - ff up with Dr. Alanis in 2 weeks for re-evaluation (may need Cardioversion + /- Zio monitoring) case and plan of care discussed with patient in detail she is understanding, agreeable and comfortable with the plan of care DISPO d/c home ff up with PCP in 1 week ff up with Dr. Anderson in 2 weeks Current Inpatient Medications: Current Inpatient Medications Medications (Trade) Dose Ordered Sig/Linnea Route Start Time Stop Time Status Last Admin Dose Admin Acetaminophen (Tylenol Tab) 650 mg Q4H PRN PO 04/05/17 14:15 05/05/17 14:14 04/05/17 21:55 650 MG Ondansetron HCl (Zofran Inj) 4 mg Q6H PRN IV 04/05/17 14:15 05/05/17 14:14 Ranitidine HCl (zANTac TAB) 150 mg BID PO 04/05/17 21:00 05/05/17 20:59 04/06/17 07:33 150 MG Estradiol (Estrace Tab) 2 mg HS PO 04/06/17 21:00 05/06/17 20:59 Metoprolol Succinate (Toprol Xl Tab) 25 mg QAM PO 04/07/17 09:00 05/07/17 08:59 Apixaban (Eliquis Tab) 5 mg BID PO 04/06/17 22:00 05/06/17 21:59
[2017-04-06] MEDS ORDERED: TPRSR25 PO (16:01)
[2017-04-06] MEDS ORDERED: ELQ25 PO (16:01)
[2017-04-06] MEDS ORDERED: POTA20TA16 PO (16:01)
[2017-04-06 16:08] LABS: PARTIAL THROMBOPLASTIN RATIO 0.9
--- NOTE | 2017-04-06 16:09 | Discharge Instructions ---
Discharge Instructions Date of Service Apr 07, 2017. Admission Reason for Admission: Atrial Fibrillation Discharge Discharge Diagnosis / Problem: ATRIAL FIBRILLATION Discharge Goals Goal(s): Diagnostic testing, Therapeutic intervention Activity Recommendations Activity Limitations: as noted below (NO HEAVY EXERTION UNTIL RE-EVALUATED BY PRIMARY CARE PHYSICIAN) Lifting Limitations: until after follow-up appointment Exercise/Sports Limitations: until after follow-up appointment . Instructions / Follow-Up Instructions / Follow-Up PLEASE REVIEW YOUR NEW MEDICATION LIST AND FOLLOW INSTRUCTIONS CAREFULLY. IF YOU EVER HAVE ANY HEAD TRAUMA, PROCEED TO THE ER IMMEDIATELY FOR EVALUATION. CALL PRIMARY CARE PHYSICIAN OR RETURN TO ER IMMEDIATELY IF WITH CHEST DISCOMFORT , PALPITATIONS, DIZZINESS, WEAKNESS, SIGNS OF BLEEDING. FOLLOW UP WITH PRIMARY CARE PHYSICIAN DR. CHAHAL ON Monday04/13/17 AT 10: 30AM. FOLLOW UP WITH APPAREL CUTTER DR. CABRERA IN 2 WEEKS. TEL. NO. Current Hospital Diet Patient's current hospital diet: Regular Diet Discharge Diet Recommended Diet: Regular Diet Procedures Procedures Performed: ECHOCARDIOGRAM Pending Studies Studies pending at discharge: yes List of pending studies: REPEAT BLOOD WORK C/O PRIMARY CARE PHYSICIAN Medical Emergencies . Who to Call and When: Medical Emergencies: If at any time you feel your situation is an emergency, please call 911 immediately. . Non-Emergent Contact Non-Emergency issues call your: Primary Care Provider, Electric Container Tester Call Non-Emergent contact if: you have a fever, you have any medication questions . . "Provider Documentation" section prepared by Marques Guerra. . VTE Core Measure Inpt VTE Proph given/why not?: Unfractionated heparin SQ, Other Anticoagulation (APIXABAN)
--- NOTE | 2017-04-06 16:12 | Discharge Summary ---
Discharge Summary Date of Service Apr 06, 2017. Discharge Summary Admission Date: Apr 05, 2017 at 14:06 Discharge Date: Apr 07, 2017 Discharge Disposition: Home Principal Diagnosis: NEW ONSET ATRIAL FIBRILLATION WITH RVR Procedures: Echocardiogram Consultations: License Examiner Dr. Cabrera Pending Studies/Follow-Up: Please refer to hospital course below. Medication Reconciliation New Medications: Potassium Ext Rel (Klor-Con) 20 Meq Tabcr 20 MEQ PO DAILY for 7 Days, #7 TAB 0 Refills [Apixaban] () 5 MG PO BID for 30 Days, #60 TABS 2 Refills Metoprolol Succinate (Metoprolol Succinate ER) 25 Mg Tabcr 25 MG PO QAM for 30 Days, #30 TABS 2 Refills Continued Medications: Estradiol (Estradiol) 2 Mg Tab 1 TAB PO HS, TAB Ranitidine (Zantac) 150 Mg Tab 1 TAB PO BID Admission Information HPI (per Admitting provider): 51 year old female who presents to the ED after being found to be in atrial fibrillation during an elective research sleep study at [facility]. During the study, patient was noted to be in atrial fibrillation. Patient was asymptomatic. Patient reports a long standing history of palpitations. Per review of prior records, about 10 years ago patient was trailed on several medications for palpitations including Toprol, metoprolol, verapamil, and atenolol. These either did not control her symptoms or gave her headache. She was then finally placed on Cardizem however is no longer taking it. She is unsure when she stopped this medicine or why. She does remember her palpitations being much more severe several years ago however they have seem to have gotten better over time. She reports they would happen frequently and sometimes last all day and now they happen infrequently and resolve on their own quickly. She denies chest pain, shortness of breath, lightheadedness, dizziness, diaphoresis, or syncopal events. No abdominal pain, nausea, vomiting , or diarrhea. She denies fever and chills. No urinary symptoms. In the ED, patient was found to be in a rate controlled atrial fibrillation. Labs are unremarkable. She was to have an echo completed and likely discharged home however patient develop a. fib with RVR with rates in the 160s. She was given Cardizem 15mg IV bolus followed by a drip with improvement in her rates. Physical Exam (per Admitting): General Appearance: WD/WN, no apparent distress Head: normocephalic, atraumatic Eyes: normal inspection, EOMI, sclerae normal ENT: hearing grossly normal, + pertinent finding (mucous membranes jeff) Neck: supple, no JVD, trachea midline Respiratory/Chest: lungs clear, normal breath sounds, no respiratory distress Cardiovascular: no edema, normal peripheral pulses, + irregularly irregular (rate controlled) Abdomen/GI: normal bowel sounds, non tender, soft, no organomegaly Extremities/Musculoskelatal: normal inspection, no calf tenderness, normal capillary refill Neurologic/Psych: no motor/sensory deficits, alert, normal mood/affect, oriented x 3 Skin: normal color, warm/dry Hospital Course NEW ONSET ATRIAL FIBRILLATION WITH RVR - patient presenting after having an elective sleep study done at [facility] where she was found to be in atrial fibrillation on the monitor, patient was asymptomatic ; in the ED, patient was initially in rate controlled atrial fibrillation however then developed a. fib with RVR with rates in the 160s, she was given Cardizem 15mg IV bolus and drip with improvement in rates - cardiac markers negative echo: * The rhythm is atrial fibrillation. * Ejection Fraction = 55-60%. * The left atrium is mildly dilated. * No significant valvular pathology. Potassium 3.4--> 4.2 - required Cardizem drip, then transitioned to Metoprolol PO also placed on heparin drip - patient remained in Atrial Fibrillation but heart rate was controlled to <100 Cardiology consulted, Dr. Cabrera, he recommends: Metoprolol XL 25mg po daily Apixaban 5mg po BID K supplementation possible discontinuation of estrogen therapy - ff up with Dr. Cabrera in 2 weeks for re-evaluation (may need Cardioversion + /- Zio monitoring) DISPO d/c home ff up with PCP in 1 week ff up with Dr. Cabrera in 2 weeks Total time spent on discharge = 40 minutes This includes examination of the patient, discharge planning, medication reconciliation, and communication with other providers. Discharge Instructions Discharge Instructions Date of Service Apr 06, 2017. Admission Reason for Admission: Atrial Fibrillation Discharge Discharge Diagnosis / Problem: ATRIAL FIBRILLATION Discharge Goals Goal(s): Diagnostic testing, Therapeutic intervention Activity Recommendations Activity Limitations: as noted below (NO HEAVY EXERTION UNTIL RE-EVALUATED BY PRIMARY CARE PHYSICIAN) Lifting Limitations: until after follow-up appointment Exercise/Sports Limitations: until after follow-up appointment . Instructions / Follow-Up Instructions / Follow-Up PLEASE REVIEW YOUR NEW MEDICATION LIST AND FOLLOW INSTRUCTIONS CAREFULLY. IF YOU EVER HAVE ANY HEAD TRAUMA, PROCEED TO THE ER IMMEDIATELY FOR EVALUATION. CALL PRIMARY CARE PHYSICIAN OR RETURN TO ER IMMEDIATELY IF WITH CHEST DISCOMFORT , PALPITATIONS, DIZZINESS, WEAKNESS, SIGNS OF BLEEDING. FOLLOW UP WITH PRIMARY CARE PHYSICIAN DR. CHAHAL ON Monday04/13/17 AT 10: 30AM. FOLLOW UP WITH FLIGHT TEST DATA ACQUISITION TECHNICIAN DR. CABRERA IN 2 WEEKS. TEL. NO. Current Hospital Diet Patient's current hospital diet: Regular Diet Discharge Diet Recommended Diet: Regular Diet Procedures Procedures Performed: ECHOCARDIOGRAM Pending Studies Studies pending at discharge: yes List of pending studies: REPEAT BLOOD WORK C/O PRIMARY CARE PHYSICIAN Medical Emergencies . Who to Call and When: Medical Emergencies: If at any time you feel your situation is an emergency, please call 911 immediately. . Non-Emergent Contact Non-Emergency issues call your: Primary Care Provider, License Examiner Call Non-Emergent contact if: you have a fever, you have any medication questions . . "Provider Documentation" section prepared by Marques Guerra. . VTE Core Measure Inpt VTE Proph given/why not?: Unfractionated heparin SQ, Other Anticoagulation (APIXABAN)
[2017-04-06] MEDS ORDERED: METOPROLOL TARTRATE 1 MG/ML VIAL IV STA (17:14)
[2017-04-06] MEDS ORDERED: METOPROLOL TARTRATE 25 MG TAB PO ONE (19:45)
--- NOTE | 2017-04-06 19:47 | Progress Note ---
Progress Note Date of Service Apr 06, 2017. Progress Note around 5pm, monitoring analyst showed A fib with HR 120s patient was checked, states she feels "warm" on exam, patient seen resting in bed, states she just feels hot, denies palpitations/chest pain/dyspnea Lopressor 5mg IV ordered HR improved to low 100s, BP systolic 114 additional Metoprolol 12.5mg po ordered cancel discharge, observe overnight discussed with patient and she is agreeable with plan of care Marques Guerra MD
[2017-04-06 20:17] LABS: POTASSIUM 3.8 mmol/L (3.5-5.1)
[2017-04-06 20:21] LABS: MAGNESIUM 2.2 mg/dl (1.8-2.4)
[2017-04-06] MEDS: NSS + 20MEQ KCL 1000ML 1,000 ML IV SCH (20:48)
[2017-04-06] MEDS: APIXABAN 2.5 MG TAB PO SCH (21:44)
[2017-04-07 03:35] VITALS: BP 99/66; PULSE 76; TEMP 36.6; O2SAT 97
[2017-04-07] MEDS: APIXABAN 2.5 MG TAB PO SCH (07:47)
[2017-04-07] MEDS: RANITIDINE HCL 150 MG TAB PO SCH (07:48)
[2017-04-07] MEDS: NSS + 20MEQ KCL 1000ML 1,000 ML IV SCH (07:51)
[2017-04-07 07:52] VITALS: BP 116/70; PULSE 96; TEMP 36.6; O2SAT 99
[2017-04-07 08:40] LABS: BUN/CREATININE RATIO 27.4 (10-20); CALCIUM 8.8 mg/dl (8.5-10.1); CREATININE 0.63 mg/dl (0.60-1.20); POTASSIUM 4.3 mmol/L (3.5-5.1)
[2017-04-07] MEDS ORDERED: METOPROLOL SUCC 25MG EXT REL TAB PO SCH (09:00)
--- NOTE | 2017-04-07 09:59 | Progress Note ---
Medicine Progress Note Date & Time of Visit: Apr 07, 2017 at 09:56. Subjective no acute events overnight remains in a fib, HR <100 sitting up in bed, comfortable states she feels fine overall states she can feel the irregular heartbeat but denies chest pain, dyspnea, dizziness no problems ambulating no bleeding denies other symptoms Objective Last 8 Hrs Date Time Temp Pulse Resp B/P (MAP) Pulse Ox O2 Delivery O2 Flow Rate FiO2 04/07/17 08:00 Room Air 04/07/17 07:52 36.6 96 18 116/70 (85) 99 04/07/17 04:00 Room Air 04/07/17 03:35 36.6 76 18 99/66 (77) 97 Room Air Physical Exam: General- oriented x 3, not in distress, speaks in sentences with no effort Eyes- EOMI, anicteric Neck- supple, no JVD Lungs- clear to auscultation b/l Heart- irregularly irregular rhythm; no murmur, normal rate Abdomen- normal bowel sounds, soft, nontender Extremities- no pretibial edema, no calf tenderness; peripheral pulses intact Neuro- alert, oriented x 3;no gross focal deficits Skin- warm & dry Laboratory Results: Last 24 Hours Test 04/06/17 15:36 04/06/17 19:54 04/07/17 07:49 Activated Partial Thromboplast Time 24.3 SECONDS Partial Thromboplastin Ratio 0.9 Potassium Level 3.8 mmol/L 4.3 mmol/L Magnesium Level 2.2 mg/dl Sodium Level 141 mmol/L Chloride Level 110 mmol/L Carbon Dioxide Level 26 mmol/L Anion Gap 5.0 mmol/L Blood Urea Nitrogen 17 mg/dl Creatinine 0.63 mg/dl Est Creatinine Clear Calc Drug Dose 88.4 ml/min Estimated GFR () 121.2 Estimated GFR (Non- 104.6 BUN/Creatinine Ratio 27.4 Random Glucose 98 mg/dl Calcium Level 8.8 mg/dl Assessment & Plan NEW ONSET ATRIAL FIBRILLATION WITH RVR - patient presenting after having an elective sleep study done at [facility] where she was found to be in atrial fibrillation on the monitor, patient was asymptomatic ; in the ED, patient was initially in rate controlled atrial fibrillation however then developed a. fib with RVR with rates in the 160s, she was given Cardizem 15mg IV bolus and drip with improvement in rates - cardiac markers negative echo: * The rhythm is atrial fibrillation. * Ejection Fraction = 55-60%. * The left atrium is mildly dilated. * No significant valvular pathology. Potassium 3.4 - required Cardizem drip, then transitioned to Metoprolol PO also placed on heparin drip - was to be discharged, but at around 5pm, patient's HR increased to 120s IV Lopressor then additional PO Metoprolol given HR controlled since, asymptomatic - awaiting further recommendations from Cardiology [facility] if Metoprolol needs to be increased continue Apixaban monitor K - ff up with Dr. Alanis in 2 weeks for re-evaluation (may need Cardioversion + /- Zio monitoring) DISPO d/c home ff up with PCP in 1 week ff up with Dr. Alanis in 2 weeks Consultants: Emd Teacher Dr. Alanis Procedures: Echocardiogram Current Inpatient Medications: Current Inpatient Medications Medications (Trade) Dose Ordered Sig/Linnea Route Start Time Stop Time Status Last Admin Dose Admin Acetaminophen (Tylenol Tab) 650 mg Q4H PRN PO 04/05/17 14:15 05/05/17 14:14 04/05/17 21:55 650 MG Ondansetron HCl (Zofran Inj) 4 mg Q6H PRN IV 04/05/17 14:15 05/05/17 14:14 Ranitidine HCl (zANTac TAB) 150 mg BID PO 04/05/17 21:00 05/05/17 20:59 04/07/17 07:48 150 MG Estradiol (Estrace Tab) 2 mg HS PO 04/06/17 21:00 05/06/17 20:59 04/06/17 20:49 2 MG Metoprolol Succinate (Toprol Xl Tab) 25 mg QAM PO 04/07/17 09:00 05/07/17 08:59 04/07/17 07:48 25 MG Apixaban (Eliquis Tab) 5 mg BID PO 04/06/17 22:00 05/06/17 21:59 04/07/17 07:47 5 MG Potassium Chloride/Sodium Chloride 1,000 ml @ 100 mls/hr Q10H IV 04/06/17 20:30 05/06/17 20:29 04/07/17 07:51 100 MLS/HR
[2017-04-07 11:46] VITALS: BP 101/74; PULSE 86; TEMP 36.8; O2SAT 99
[2017-04-07] MEDS ORDERED: Apixaban PO (13:08)
[2017-04-07 13:43] VITALS: BP 101/74; PULSE 86; TEMP 36.8; O2SAT 99
== END 2017-04-07 14:07 | disposition home or self-care (01) | DRG 310 ==
LOC: C.EDB 10:46 → C.2T 14:06 → ENRESERV 14:15
PROVIDERS: ADMIT Hospitalist; ATTEND Internal Medicine
DX: I48.0 Paroxysmal atrial fibrillation (principal); I51.7 Cardiomegaly; K21.9 Gastro-esophageal reflux disease without esophagitis; Z82.49 Family history of ischemic heart disease and other diseases of the circulatory system; Z92.29 Personal history of other drug therapy; Z79.890 Hormone replacement therapy; Z79.899 Other long term (current) drug therapy

== ENCOUNTER → 2017-05-10 | Day surgery (SDC) | payer OTHER ==
[~2017-05-10] VITALS: Ht 160 cm; Wt 59.0 kg
[~2017-05-10] MED LIST changes: +Apixaban PO; +CYCL10TA6 PO; +ESTR2TAB PO; +METO-452 PO; +POTA20TA16 PO; -PRM625 PO; +PROPOFOL IV EMULSION 10 MG/ML 20 ML VIAL IV ONE; +TPRSR25 PO
[2017-05-10 07:03] VITALS: BP 134/85; PULSE 80; TEMP 36.4; O2SAT 95; Ht 160 cm; Wt 59.0 kg
[2017-05-10 07:28] VITALS: BP 151/90; PULSE 92; O2SAT 100
[2017-05-10 07:30] VITALS: BP 118/86; PULSE 85; O2SAT 100
[2017-05-10 07:35] VITALS: BP 116/74; PULSE 83; O2SAT 100
--- NOTE | 2017-05-10 07:37 | History & Physical Bridge Note ---
H&P Re-Evaluation Bridge Note: I have examined the patient, reviewed the History & Physical and in the interval since the performance of the History & Physical I have noted the following changes of clinical significance: No changes noted
--- NOTE | 2017-05-10 07:40 | Discharge Instructions ---
Discharge Instructions Procedure Procedure Date: May 10, 2017. Reason for Visit: Atrial Fibrulation Kopinski To Do W/Anesthesi. Discharge Discharge Date: May 10, 2017. Discharge Diagnosis: Persistent atrial fibrillation. Last Recorded Wt (Kilograms): 59 Anesthesia Post Anesthesia Instructions: If you have had General Anesthesia or IV Sedation: * Do not drive today. * Resume driving when surgeon permits. * Do not make important decisions or sign legal documents today. * Call surgeon for: 1. Temperature elevations greater than 101 degrees F. 2. Uncontrollable pain. 3. Excessive bleeding. 4. Persistent nausea and vomiting. 5. Medication intolerance (nausea, vomiting or rash). * For nausea and vomiting use only clear liquids such as: tea, soda, bouillon until nausea subsides, then gradually increase diet as tolerated. * If you have any concerns or questions, call your surgeon's office. If physician is unavailable and it is an emergency, call 911 or go to the nearest emergency room. Instructions Activity Recommendations: limitations as noted below Return to School/Work: with the following limitations Recommended Home Diet: resume previous diet Allergies: Coded Allergies: Morphine (Unverified Allergy, Mild, unknown, 05/10/17) Clarithromycin (Unverified Allergy, Unknown, unknown, 05/10/17) Codeine (Verified Allergy, Unknown, 04/05/17) Moxifloxacin (Unverified Allergy, Unknown, unknown, 05/10/17) Provider Instructions ACTIVITY RECOMMENDATIONS: Resume activities as tolerated with no limitations unless specified. _x_ No lifting over _10_ pounds for 24 hours. _x_ Do not engage in vigorous exercise, sexual activity, or sports for 24 hours. _x_ Do not drive or operate any motorized equipment for 24 hours. _x_ You may return to work/school tomorrow. Follow Up Follow-up with: Dr. Alanis as scheduled. Lemuel Lai Recommendations: Call your doctor if: * Temperature above 101 degrees * Pain not relieved by pain medicine ordered * There is increased drainage or redness from any incision * You have any unanswered questions or concerns. Your Doctors Instructions noted above were prepared by provider Darius Alanis. Patient Signature Section: Patient Instructions Signature Page Ania Walker Patient (or Guardian) Signature/Date: I have read and understand the instructions given to me by my caregivers. Caregiver/RN/Doctor Signature/Date: The above-named patient and/or guardian has received patient instructions on this date. + Original Patient Signature Page (only) stays with chart. Please make copy for patient.
--- NOTE | 2017-05-10 07:49 | CARDIOVERSION ---
DATE OF OPERATION: 05/10/2017 PROCEDURE: External direct current cardioversion. INDICATION: Persistent atrial fibrillation. COMPLICATIONS: None. ANESTHESIA: Conscious sedation provided by anesthesiologist. PROCEDURAL SUMMARY: The patient was brought to the cardiac catheterization lab in a fasting state. The defibrillator pads were placed in an anterior and posterior position. The defibrillator was synched to the QRS complex. When adequate sedation was achieved the patient received a 200 joule shock which successfully converted her to sinus rhythm briefly. After less than 1 minute she reverted to atrial fibrillation with controlled ventricular response. A second shock was delivered at an energy of 300 joules. She again converted to sinus rhythm for approximately 1 minute. The patient then returned to atrial fibrillation with controlled ventricular response. She tolerated the procedure well. No complications. CONCLUSION: Unsuccessful external direct current cardioversion with two defibrillator shocks at 200 joules and 300 joules. No complications. I attest to the content of the Intraoperative Record and any orders documented therein. Any exception s are noted below.
[2017-05-10 08:15] VITALS: BP 102/78; PULSE 92; O2SAT 100
--- NOTE | 2017-05-10 08:58 | Anesthesiology Progress Note ---
Anesthesia Post Op Note Date & Time May 10, 2017 at 08:58 Vital Signs Pain Intensity: 0 Vital Signs Past 12 Hours Date Time Temp Pulse Resp B/P (MAP) Pulse Ox O2 Delivery O2 Flow Rate FiO2 05/10/17 08:15 92 16 109/77 (88) 100 Room Air 102/78 (86) 05/10/17 08:00 73 16 104/77 (86) 100 Room Air 05/10/17 07:58 73 16 101/79 (86) 100 Room Air 05/10/17 07:48 73 16 96/79 (85) 100 Room Air 05/10/17 07:38 71 16 119/71 (87) 100 Room Air 05/10/17 07:35 83 16 116/74 100 Nasal Cannula 4 05/10/17 07:30 85 16 118/86 100 Nasal Cannula 4 05/10/17 07:28 92 16 151/90 100 Nasal Cannula 4 05/10/17 07:03 36.4 80 18 134/85 95 Room Air Notes Mental Status: alert / awake / arousable, participated in evaluation Pt Amnestic to Procedure: Yes Nausea / Vomiting: adequately controlled Pain: adequately controlled Airway Patency, RR, SpO2: stable & adequate BP & HR: stable & adequate Hydration State: stable & adequate Anesthetic Complications: no major complications apparent
== END | disposition home or self-care (01) ==
LOC: C.CATH 06:39
PROVIDERS: ATTEND Internal Medicine Cardiovascular Disease
DX: I48.0 Paroxysmal atrial fibrillation (principal); E78.2 Mixed hyperlipidemia; K21.9 Gastro-esophageal reflux disease without esophagitis; E66.9 Obesity, unspecified; Z88.1 Allergy status to other antibiotic agents; Z88.5 Allergy status to narcotic agent; Z90.89 Acquired absence of other organs; Z80.3 Family history of malignant neoplasm of breast